=== PATIENT | female | born 1965 | race Caucasian/White ===

== ENCOUNTER → 2018-04-10 | Outpatient (CLI) | payer OTHER ==
--- NOTE | 2018-04-10 16:51 | MR ---
EXAMINATION TYPE: MR knee RT wo con DATE OF EXAM: 04/10/2018 COMPARISON: None HISTORY: Right Knee Pain with Swelling and Limited ROM X3 months TECHNIQUE: Multiplanar, multisequence imaging of the right knee is performed without IV contrast. FINDINGS: MEDIAL MENISCUS: Diffuse increased signal in the posterior horn may be due to myxoid degeneration. Po sterior horn anchor is not defined with certainty LATERAL MENISCUS: Linear increased signal seen at the level of the posterior horn on sagittal image 2 0 and 19 is thought to represent meniscal ligament rather than tear CRUCIATE LIGAMENTS: The anterior and posterior cruciate ligaments are intact and unremarkable. COLLATERAL LIGAMENTS: The medial collateral ligament and lateral collateral ligament complex are inta ct and unremarkable. EXTENSOR MECHANISM: Visualized quadriceps and patellar tendons are intact. EFFUSION: Suprapatellar joint effusion is present. POPLITEAL CYST: Small semimembranosus gastrocnemius cyst is present. There are some internal septati ons, there may be rupture of the cyst TRICOMPARTMENT SPACES: Joint space loss present in the medial compartment. CARTILAGE: Grade 3 to grade IV chondromalacia posterior patella and medial compartment at the femoral condyle BONE MARROW SIGNAL: Possible reactive marrow signal change along the proximal tibia medially. OTHER: Marginal spurring is present especially medial compartment. IMPRESSION: Osteoarthritis. Findings at the menisci as described, no definite meniscal tear. Additional findings above.
== END | disposition home or self-care (01) ==
LOC: RADMRIMAIN 15:42
PROVIDERS: ATTEND Orthopaedic Surgery
DX: M17.11 Unilateral primary osteoarthritis, right knee (principal); M22.41 Chondromalacia patellae, right knee; M71.21 Synovial cyst of popliteal space [Baker], right knee; R93.7 Abnormal findings on diagnostic imaging of other parts of musculoskeletal system

== ENCOUNTER → 2018-09-23 | Outpatient (CLI) | payer OTHER ==
--- NOTE | 2018-09-24 21:31 | MR ---
EXAMINATION TYPE: MR brain wo con DATE OF EXAM: 09/23/2018 COMPARISON: 07/13/2015 outside MRI internal auditory canals HISTORY: Headache / Left facial pain CONTRAST: Performed utilizing 0 mL intravenous Gadavist gadolinium contrast. TECHNIQUE: Multiplanar, multiecho imaging on a 3.0 Chelo magnet is performed through the brain. Stud y is performed within 24 hours of arrival to the hospital. The craniovertebral junction is normal. The pituitary is normal. Optic chiasm is normal. Normal vas cular flow voids are present. Diffusion-weighted imaging is performed. No abnormal hyperintensity is present to suggest an acute i ntracranial infarct or acute ischemic change. Signal through the brain is unremarkable. Ventricles and sulci are appropriate for the patient age. Findings appear stable from comparison images. IMPRESSIONS: 1. No suspicious abnormality to account for patient's symptoms. 2. Postcontrast imaging may provide additional information cranial nerve abnormalities.
== END | disposition home or self-care (01) ==
LOC: RADMRIMAIN 08:53
DX: R51 Headache (principal); Z86.69 Personal history of other diseases of the nervous system and sense organs
CPT/HCPCS: 70551